=== PATIENT | female | born 2000 ===

== ENCOUNTER 2020-06-14 13:50 | Observation (INO) | payer OTHER, MEDICAID, SELFPAY ==
[2020-06-14] VITALS (18 sets, daily range): BP systolic 105–151; BP diastolic 50–92; PULSE 54–113; RESP 14–20; TEMP 36.4–37.1; O2SAT 98–100; BMI 25.4
--- NOTE | 2020-06-14 | PATH_ITS ---
[facility] Accession Number: [id number] . 01 Material submitted: . appendix - APPENDIX . 01 Clinical history: . ABDOMINAL PAIN, OVARIAN CYST . 02 Diagnosis: Appendix, Appendectomy: Acute suppurative appendicitis with perforation and serositis. Negative for dysplasia and malignancy. MRV 06/17/2020 1425 Local . 02 Electronically signed: . Daina Chapa MD, Pathologist NPI- [id number] . 01 Gross description: . The specimen is received in formalin, labeled appendix and consists of an 8.0 cm in length x 1.0 cm in diameter vermiform appendix with attached hoffman-yellow lobulated mesoappendix measuring 5.0 x 1.0 x 1.0 cm in aggregate. The serosa is hoffman-pink and smooth with fibrinous adhesions and adherent hoffman purulent exudate near the tip. Sectioning reveals a hoffman mucosa and a lumen measuring 0.5 cm in diameter. There is jain-brown liquid fecal material within the tip. There is a perforation site within the tip. Injection Operator sections are submitted, to include the en face margin (blue), central cross-sections and bisected tip in cassettes A1-A2. ([id number]) /[facility] 06/16/2020 1726 Local . 02 Pathologist provided ICD-10: K35.20 . 02 CPT . 805451 Performed at: 01 [facility] [address], [place], [place] [id number] MD Marino Sánchez MD Phone: [phone] Performed at: 02 [facility] [address] [place], [place] [id number] MD Daina Chapa MD Phone: [phone]
--- NOTE | 2020-06-14 14:17 | DI.US.S_ITS ---
PROCEDURE: US ABDOMEN LIMITED INDICATIONS: RLQ PAIN TECHNIQUE: Real-time focused scanning was performed of the abdomen with attention to the appendix, with image documentation. COMPARISON: None. FINDINGS: Appendix visualization: Yes Appendix measurements: 1.1 cm at the origin. Wall thickness measures approximately 2.8 mm. Associated findings: Echogenic fat: Present Appendiceal compressibility: Absent Appendicoliths: Absent Nearby free fluid: Absent Lymphadenopathy: Absent Tenderness on exam: Present IMPRESSION: Dilated appendix with surrounding echogenic fat is suggesting inflammatory change. Findings most compatible with acute or subacute appendicitis. No free fluid is seen. Dictated by: Tavo Roblero M.D. on 06/14/2020 at 14:21 Approved by: Tavo Roblero M.D. on 06/14/2020 at 14:24
[2020-06-14] MEDS: KETOROLAC 60 MG/2 ML VIAL 30 MG IV (14:19)
[2020-06-14 14:21] LABS: Add Manual Diff / Slide Review NO; Basophils Absolute Auto 0 /uL (0-100); Basophils Percent Auto 0.2 % (0-2); Eosinophils Absolute Auto 100 /uL (0-450); Eosinophils Percent Auto 0.8 % (2-4); Hematocrit 38.3 % (36-46); Hemoglobin 13.3 g/dL (12.0-16.0); Lymphocytes Absolute Auto 2300 /uL (1100-4500); Mean Corpuscular HGB Conc 34.8 % (30-36); Mean Corpuscular Hemoglobin 28.8 PG (26-34); Mean Corpuscular Volume 82.8 fL (80-100); Monocytes Absolute Auto 1300 /uL (0-900); Monocytes Percent Auto 9.2 % (3-14); Neutrophils Absolute Auto 10600 /uL (1500-7000); Neutrophils Percent Auto 73.8 % (50-75); Platelet Count 168 X10^3/uL (150-400); Red Blood Cell Count 4.62 X10^6/uL (4.0-5.2); Red Cell Distribution Width 11.8 % (11.6-14.8); White Blood Cell Count 14.4 X10^3/uL (4.5-11.0)
[2020-06-14 14:27] LABS: Alanine Aminotransferase 43 IU/L (<35); Albumin 4.5 g/dL (3.5-5.0); Albumin Globulin Ratio 1.4 (1.0-2.8); Alkaline Phosphatase 68 U/L (38-126); Aspartate Aminotransferase 27 IU/L (14-36); BUN Creatinine Ratio 14.6 (6-22); Bilirubin Total 1.3 mg/dL (0.2-1.3); Blood Urea Nitrogen 12 mg/dL (7-17); Calcium 9.3 mg/dL (8.4-10.2); Carbon Dioxide 30 mmol/L (22-32); Chloride 102 mmol/L (98-107); Estimated Glomerular Filt Rate > 60.0 mL/min (>60); Globulin 3.3 g/dL (1.7-4.1); Glucose 87 mg/dL (70-100); HEMOLYSIS < 15 (0-50); Lipase 80 U/L (23-300); Sodium 138 mmol/L (137-145); Total Protein 7.8 g/dL (6.3-8.2)
--- NOTE | 2020-06-14 14:44 | ED_ITS ---
HPI - Abdominal Pain <Madison Martin DO - Last Filed: 06/14/20 14:51> General Source: patient Mode of arrival: Ambulatory Limitations: no limitations History of Present Illness HPI narrative: Patient is a 20-year-old female who has a history of ovarian cyst presents with right lower quadrant pain ongoing for the last 2 days. It is nonradiating. The pain has been so severe that she has been walking hunched over and now has back pain. She denies any fever or chills. She has no dysuria or urinary frequency. She has not had any nausea or vomiting. MD complaint: abdominal pain Onset (ago): day(s) (2) Pain Consistency: constant Location: RLQ Quality: stabbing Radiation: none Relieving factors: nothing Exacerbating factors: nothing Related Data Home Medications Medication Instructions Recorded Confirmed ibuprofen 200 mg PO PRN #0 07/23/12 cholecalciferol (vitamin D3) 1,000 unit PO QDAY #0 tab 03/29/16 [Vitamin D3] loratadine [Claritin] 5 mg PO #0 ml 03/29/16 Previous Rx's Medication Instructions Recorded doxycycline monohydrate 100 mg PO SEE INSTRUCTIONS #46 tab 07/07/16 Allergies Allergy/AdvReac Type Severity Reaction Status Date / Time soy [SOY] Allergy Unknown DIARRHEA Verified 06/14/20 14:05 Review of Systems <DO Marizol Dang Last Filed: 06/14/20 14:51> Review of Systems Narrative: GENERAL: Denies chills, fatigue, malaise, fever, sweats, travel HEENT: Denies sinus pain, ear pain, sore throat, difficulty swallowing, neck pain RESPIRATORY: Denies dyspnea, cough, wheezing, hemoptysis, sputum. CARDIOVASCULAR: Denies chest pain, palpitations, orthopnea, edema GASTROINTESTINAL: See HPI : Denies dysuria, frequency, incontinence, hematuria, urinary retention, flank pain. MUSCULOSKELETAL: Denies weakness, joint pain, or bony pain SKIN: No rash, no erythema, no pruritus NEUROLOGIC: Denies weakness, dizziness, headache, numbness, change in speech, confusion PSYCHIATRIC: No concerning psychosocial issues. 12 point review of systems is negative except for those stated above and HPI Patient History <DO Marizol Dang Last Filed: 06/14/20 14:51> Social History Smoking Status: Never smoker Smoking Status: Never smoker alcohol intake frequency: 0-2 drinks per day Substance Use Type: does not use Exam <Madison Martin DO - Last Filed: 06/14/20 14:51> Initial Vital Signs Initial Vital Signs: Vital Signs Temperature 98.1 F 06/14/20 14:02 Pulse Rate 89 06/14/20 14:02 Respiratory Rate 14 06/14/20 14:02 Blood Pressure 135/89 06/14/20 14:02 Pulse Oximetry 100 06/14/20 14:02 GENERAL: Alert young female appears in pain and in no acute distress. HEENT: Head atraumatic,EOMI, pupils reactive, face symmetric, moist mucous membranes CARDIOVASCULAR: Regular rate and rhythm without murmurs, rubs or gallops. RESPIRATORY: Breath sounds equal bilaterally, no wheezes rales or rhonchi. ABDOMEN: Soft, tender right lower quadrant no guarding no rebound EXTREMITIES: Normal range of motion, no clubbing or edema. Neurovascularly intact NEUROLOGICAL: Alert and oriented x4.Normal gait and speech. SKIN: Warm, dry, no laceration, no petechiae, no rashes or lesions. <Jaimee Elena MD - Last Filed: 06/14/20 15:59> Initial Vital Signs Initial Vital Signs: Vital Signs Temperature 98.1 F 06/14/20 14:02 Pulse Rate 89 06/14/20 14:02 Respiratory Rate 14 06/14/20 14:02 Blood Pressure 135/89 06/14/20 14:02 Pulse Oximetry 100 06/14/20 14:02 Course <Madison Martin DO - Last Filed: 06/14/20 14:51> Orders Ordered: ED Orders 06/14/20 14:10 Complete Blood Count AUTO DIFF Stat Comprehensive Metabolic Panel Stat Lipase Stat 06/14/20 14:17 US abdomen limited Stat 06/14/20 15:27 COVID19 Stat Discontinued Medications Piperacillin/Tazobactam/Dextrose (Zosyn) 3.375 gm in 50 mls @ 100 mls/hr IV NOW ONE Stop: 06/14/20 15:48 Last Admin: 06/14/20 15:23 Dose: 100 mls/hr Documented by: RMARTIN Ketorolac Tromethamine (Ketorolac 60 Mg/2 Ml Vial) 30 mg IV NOW ONE Stop: 06/14/20 14:18 Last Admin: 06/14/20 14:19 Dose: 30 mg Documented by: STEFFANIE Vital Signs Vital signs: Vital Signs - 8 hr 06/14/20 14:02 06/14/20 14:51 06/14/20 14:55 Temperature 98.1 F Pulse Rate 89 88 82 Respiratory Rate 14 Blood Pressure 135/89 115/63 Pulse Oximetry 100 100 100 06/14/20 15:00 Temperature Pulse Rate 100 H Respiratory Rate Blood Pressure 122/62 Pulse Oximetry 100 <Jaimee Elena MD - Last Filed: 06/14/20 15:59> Orders Ordered: ED Orders 06/14/20 14:10 Complete Blood Count AUTO DIFF Stat Comprehensive Metabolic Panel Stat Lipase Stat 06/14/20 14:17 US abdomen limited Stat 06/14/20 15:27 COVID19 Stat Discontinued Medications Piperacillin/Tazobactam/Dextrose (Zosyn) 3.375 gm in 50 mls @ 100 mls/hr IV NOW ONE Stop: 06/14/20 15:48 Last Admin: 06/14/20 15:23 Dose: 100 mls/hr Documented by: STEFFANIE Ketorolac Tromethamine (Ketorolac 60 Mg/2 Ml Vial) 30 mg IV NOW ONE Stop: 06/14/20 14:18 Last Admin: 06/14/20 14:19 Dose: 30 mg Documented by: STEFFANIE Vital Signs Vital signs: Vital Signs - 8 hr 06/14/20 14:02 06/14/20 14:51 06/14/20 14:55 Temperature 98.1 F Pulse Rate 89 88 82 Respiratory Rate 14 Blood Pressure 135/89 115/63 Pulse Oximetry 100 100 100 06/14/20 15:00 Temperature Pulse Rate 100 H Respiratory Rate Blood Pressure 122/62 Pulse Oximetry 100 MDM - Abdominal Pain <Madison Martin DO - Last Filed: 06/14/20 14:51> Lab Data Result diagrams: 06/14/20 14:10 06/14/20 14:10 Labs: Lab Results 06/14/20 06/14/20 06/14/20 Range/Units 14:10 14:10 15:27 WBC 14.4 H (4.5-11.0) X10^3/uL RBC 4.62 (4.0-5.2) X10^6/uL Hgb 13.3 (12.0-16.0) g/dL Hct 38.3 (36-46) % MCV 82.8 (80-100) fL MCH 28.8 (26-34) PG MCHC 34.8 (30-36) % RDW 11.8 (11.6-14.8) % Plt Count 168 (150-400) X10^3/uL Neut % (Auto) 73.8 (50-75) % Lymph % (Auto) 16.0 L (25-40) % [place] % (Auto) 9.2 (3-14) % Eos % (Auto) 0.8 L (2-4) % Baso % (Auto) 0.2 (0-2) % Neut # (Auto) 69253 H (8697-0490) /uL Lymph # (Auto) 2300 (0036-7295) /uL [place] # (Auto) 1300 H (0-900) /uL Eos # (Auto) 100 (0-450) /uL Baso # (Auto) 0 (0-100) /uL Sodium 138 (137-145) mmol/L Potassium 4.0 (3.4-5.1) mmol/L Chloride 102 (98-107) mmol/L Carbon Dioxide 30 (22-32) mmol/L BUN 12 (7-17) mg/dL Creatinine 0.82 (0.52-1.04) mg/dL Estimated GFR > 60.0 (>60) mL/min BUN/Creatinine Ratio 14.6 (6-22) Glucose 87 (70-100) mg/dL Calcium 9.3 (8.4-10.2) mg/dL Total Bilirubin 1.3 (0.2-1.3) mg/dL AST 27 (14-36) IU/L ALT 43 H (<35) IU/L Alkaline Phosphatase 68 (38-126) U/L Total Protein 7.8 (6.3-8.2) g/dL Albumin 4.5 (3.5-5.0) g/dL Globulin 3.3 (1.7-4.1) g/dL Albumin/Globulin Ratio 1.4 (1.0-2.8) Lipase 80 (23-300) U/L COVID-19 PCR Negative (Negative) Point of care testing: Point of Care Testing Test Results Negative Urine Dip Bedside Urine Glucose Negative Bedside Urine Bilirubin - Negative Bedside Urine Ketone - Negative Urine Specific [place] 1.020 Bedside Urine Occult Blood - Negative Bedside Urine pH 6.0 Bedside Urine Protein +/- 15 Bedside Urine Urobilinogen - Negative Bedside Urine Nitrite - Negative Bedside Urine Leukocytes - Negative Esterase <Jaimee Elena MD - Last Filed: 06/14/20 15:59> Lab Data Labs: Lab Results 06/14/20 06/14/20 06/14/20 Range/Units 14:10 14:10 15:27 WBC 14.4 H (4.5-11.0) X10^3/uL RBC 4.62 (4.0-5.2) X10^6/uL Hgb 13.3 (12.0-16.0) g/dL Hct 38.3 (36-46) % MCV 82.8 (80-100) fL MCH 28.8 (26-34) PG MCHC 34.8 (30-36) % RDW 11.8 (11.6-14.8) % Plt Count 168 (150-400) X10^3/uL Neut % (Auto) 73.8 (50-75) % Lymph % (Auto) 16.0 L (25-40) % [place] % (Auto) 9.2 (3-14) % Eos % (Auto) 0.8 L (2-4) % Baso % (Auto) 0.2 (0-2) % Neut # (Auto) 81955 H (2414-6805) /uL Lymph # (Auto) 2300 (8904-4821) /uL [place] # (Auto) 1300 H (0-900) /uL Eos # (Auto) 100 (0-450) /uL Baso # (Auto) 0 (0-100) /uL Sodium 138 (137-145) mmol/L Potassium 4.0 (3.4-5.1) mmol/L Chloride 102 (98-107) mmol/L Carbon Dioxide 30 (22-32) mmol/L BUN 12 (7-17) mg/dL Creatinine 0.82 (0.52-1.04) mg/dL Estimated GFR > 60.0 (>60) mL/min BUN/Creatinine Ratio 14.6 (6-22) Glucose 87 (70-100) mg/dL Calcium 9.3 (8.4-10.2) mg/dL Total Bilirubin 1.3 (0.2-1.3) mg/dL AST 27 (14-36) IU/L ALT 43 H (<35) IU/L Alkaline Phosphatase 68 (38-126) U/L Total Protein 7.8 (6.3-8.2) g/dL Albumin 4.5 (3.5-5.0) g/dL Globulin 3.3 (1.7-4.1) g/dL Albumin/Globulin Ratio 1.4 (1.0-2.8) Lipase 80 (23-300) U/L COVID-19 PCR Negative (Negative) Point of care testing: Point of Care Testing Test Results Negative Urine Dip Bedside Urine Glucose Negative Bedside Urine Bilirubin - Negative Bedside Urine Ketone - Negative Urine Specific [place] 1.020 Bedside Urine Occult Blood - Negative Bedside Urine pH 6.0 Bedside Urine Protein +/- 15 Bedside Urine Urobilinogen - Negative Bedside Urine Nitrite - Negative Bedside Urine Leukocytes - Negative Esterase Discharge Plan Departure Patient Disposition: Admitted As Inpatient Clinical Impression: Acute appendicitis
[2020-06-14] MEDS: PIPERACILLIN-TAZO 3.375 GM/50 ML FROZ.PIGGY IV (15:23)
[2020-06-14 15:43] LABS: COVID19 -Nasal RAPID Negative (Negative)
--- NOTE | 2020-06-14 16:01 | ED_ITS ---
HPI - Abdominal Pain General Chief Complaint: Abdominal Pain Stated Complaint: abdominal pain, ovarian cyst Time Seen by Provider: 06/14/20 13:58 Source: patient Mode of arrival: Ambulatory Limitations: no limitations History of Present Illness HPI narrative: Patient is a 20-year-old female with history of ovarian cyst who presents with right lower quadrant pain ongoing for the last 2 days. His seems to have progressively gotten worse. She describes it as stabbing. She actually has been walking hunched over and now has back pain. She denies any radiating pain. As she denies any is dysuria or urinary frequency. She has not had any fever or chills. She last ate at about 1:[address] to the emergency department she had salmon chowder. But she overall has had decreased in appetite. She says the travel over here in car read made pain significantly worse. MD complaint: abdominal pain Onset (ago): day(s) (2) Location: RLQ Severity: moderate Quality: stabbing Radiation: none Migration to: no migration Relieving factors: nothing Exacerbating factors: nothing Related Data Home Medications Medication Instructions Recorded Confirmed ibuprofen 200 mg PO PRN #0 07/23/12 cholecalciferol (vitamin D3) 1,000 unit PO QDAY #0 tab 03/29/16 [Vitamin D3] loratadine [Claritin] 5 mg PO #0 ml 03/29/16 Previous Rx's Medication Instructions Recorded doxycycline monohydrate 100 mg PO SEE INSTRUCTIONS #46 tab 07/07/16 Allergies Allergy/AdvReac Type Severity Reaction Status Date / Time soy [SOY] Allergy Unknown DIARRHEA Verified 06/14/20 14:05 Review of Systems Review of Systems Narrative: GENERAL: Denies chills, fatigue, malaise, fever, sweats, travel HEENT: Denies sinus pain, ear pain, sore throat, difficulty swallowing, neck pain RESPIRATORY: Denies dyspnea, cough, wheezing, hemoptysis, sputum. CARDIOVASCULAR: Denies chest pain, palpitations, orthopnea, edema GASTROINTESTINAL: See HPI : Denies dysuria, frequency, incontinence, hematuria, urinary retention, flank pain. MUSCULOSKELETAL: Denies weakness, joint pain, or bony pain SKIN: No rash, no erythema, no pruritus NEUROLOGIC: Denies weakness, dizziness, headache, numbness, change in speech, confusion PSYCHIATRIC: No concerning psychosocial issues. 12 point review of systems is negative except for those stated above and HPI Patient History Medical History Cyst, ovarian Migraine Social History Smoking Status: Never smoker Smoking Status: Never smoker alcohol intake frequency: 0-2 drinks per day Substance Use Type: does not use Exam Initial Vital Signs Initial Vital Signs: Vital Signs Temperature 98.1 F 06/14/20 14:02 Pulse Rate 89 06/14/20 14:02 Respiratory Rate 14 06/14/20 14:02 Blood Pressure 135/89 06/14/20 14:02 Pulse Oximetry 100 06/14/20 14:02 GENERAL: Well-appearing, well-nourished and in no acute distress. HEENT: Head atraumatic,EOMI, pupils reactive, face symmetric, moist mucous membranes CARDIOVASCULAR: Regular rate and rhythm without murmurs, rubs or gallops. RESPIRATORY: Breath sounds equal bilaterally, no wheezes rales or rhonchi. ABDOMEN: Soft, tender right lower quadrant no guarding or rebound. Negative Dobbins sign : No CVA tenderness EXTREMITIES: Normal range of motion, no clubbing or edema. Neurovascularly intact NEUROLOGICAL: Alert and oriented x4.Normal gait and speech. SKIN: Warm, dry, no laceration, no petechiae, no rashes or lesions. Course Orders Ordered: ED Orders 06/14/20 14:10 Complete Blood Count AUTO DIFF Stat Comprehensive Metabolic Panel Stat Lipase Stat 06/14/20 14:17 US abdomen limited Stat 06/14/20 15:27 COVID19 Stat Discontinued Medications Piperacillin/Tazobactam/Dextrose (Zosyn) 3.375 gm in 50 mls @ 100 mls/hr IV NOW ONE Stop: 06/14/20 15:48 Last Admin: 06/14/20 15:23 Dose: 100 mls/hr Documented by: STEFFANIE Ketorolac Tromethamine (Ketorolac 60 Mg/2 Ml Vial) 30 mg IV NOW ONE Stop: 06/14/20 14:18 Last Admin: 06/14/20 14:19 Dose: 30 mg Documented by: STEFFANIE Vital Signs Vital signs: Vital Signs - 8 hr 06/14/20 14:02 06/14/20 14:51 06/14/20 14:55 Temperature 98.1 F Pulse Rate 89 88 82 Respiratory Rate 14 Blood Pressure 135/89 115/63 Pulse Oximetry 100 100 100 06/14/20 15:00 Temperature Pulse Rate 100 H Respiratory Rate Blood Pressure 122/62 Pulse Oximetry 100 MDM - Abdominal Pain Lab Data Attestation: I reviewed the patient's lab results. Result diagrams: 06/14/20 14:10 06/14/20 14:10 Labs: Lab Results 06/14/20 06/14/20 06/14/20 Range/Units 14:10 14:10 15:27 WBC 14.4 H (4.5-11.0) X10^3/uL RBC 4.62 (4.0-5.2) X10^6/uL Hgb 13.3 (12.0-16.0) g/dL Hct 38.3 (36-46) % MCV 82.8 (80-100) fL MCH 28.8 (26-34) PG MCHC 34.8 (30-36) % RDW 11.8 (11.6-14.8) % Plt Count 168 (150-400) X10^3/uL Neut % (Auto) 73.8 (50-75) % Lymph % (Auto) 16.0 L (25-40) % [place] % (Auto) 9.2 (3-14) % Eos % (Auto) 0.8 L (2-4) % Baso % (Auto) 0.2 (0-2) % Neut # (Auto) 20072 H (2145-2607) /uL Lymph # (Auto) 2300 (7750-5944) /uL [place] # (Auto) 1300 H (0-900) /uL Eos # (Auto) 100 (0-450) /uL Baso # (Auto) 0 (0-100) /uL Sodium 138 (137-145) mmol/L Potassium 4.0 (3.4-5.1) mmol/L Chloride 102 (98-107) mmol/L Carbon Dioxide 30 (22-32) mmol/L BUN 12 (7-17) mg/dL Creatinine 0.82 (0.52-1.04) mg/dL Estimated GFR > 60.0 (>60) mL/min BUN/Creatinine Ratio 14.6 (6-22) Glucose 87 (70-100) mg/dL Calcium 9.3 (8.4-10.2) mg/dL Total Bilirubin 1.3 (0.2-1.3) mg/dL AST 27 (14-36) IU/L ALT 43 H (<35) IU/L Alkaline Phosphatase 68 (38-126) U/L Total Protein 7.8 (6.3-8.2) g/dL Albumin 4.5 (3.5-5.0) g/dL Globulin 3.3 (1.7-4.1) g/dL Albumin/Globulin Ratio 1.4 (1.0-2.8) Lipase 80 (23-300) U/L COVID-19 PCR Negative (Negative) Point of care testing: Point of Care Testing Test Results Negative Urine Dip Bedside Urine Glucose Negative Bedside Urine Bilirubin - Negative Bedside Urine Ketone - Negative Urine Specific [place] 1.020 Bedside Urine Occult Blood - Negative Bedside Urine pH 6.0 Bedside Urine Protein +/- 15 Bedside Urine Urobilinogen - Negative Bedside Urine Nitrite - Negative Bedside Urine Leukocytes - Negative Esterase Imaging Data US - abdomen: Radiologist's Impression: PROCEDURE: US ABDOMEN LIMITED INDICATIONS: RLQ PAIN TECHNIQUE: Real-time focused scanning was performed of the abdomen with attention to the appendix, with image documentation. COMPARISON: None. FINDINGS: Appendix visualization: Yes Appendix measurements: 1.1 cm at the origin. Wall thickness measures approximately 2.8 mm. Associated findings: Echogenic fat: Present Appendiceal compressibility: Absent Appendicoliths: Absent Nearby free fluid: Absent Lymphadenopathy: Absent Tenderness on exam: Present IMPRESSION: Dilated appendix with surrounding echogenic fat is suggesting inflammatory change. Findings most compatible with acute or subacute appendicitis. No free fluid is seen. Dictated by: Tavo Roblero M.D. on 06/14/2020 at 14:21 MDM Narrative Medical decision making narrative: Patient is given Toradol seems to help her pain significantly. She is found have leukocytosis. Ultrasound does confirm appendicitis. [address] Long has been updated on patient's symptoms test results and diagnosis and concern for appendicitis. She is in ED to see and evaluate patient. Request zosyn. Patient is going to the OR Discharge Plan Departure Patient Disposition: Admitted As Inpatient Clinical Impression: Acute appendicitis Qualifiers: Acute appendicitis type: with localized peritonitis Appendicitis gangrene presence: without gangrene Appendicitis perforation presence: without perforation Appendicitis abscess presence: without abscess Qualified Code(s): K35.30 - Acute appendicitis with localized peritonitis, without perforation or gangrene Admit Date/Time: 06/14/20 15:55 Admit Provider: Jaimee Elena
--- NOTE | 2020-06-14 16:01 | PM.HP.1 ---
History of Present Illness History of Present Illness Date Patient Seen: 06/14/20 Time Patient Seen: 16:01 Chief complaint: abdominal pain, ovarian cyst Narrative: This is a 20 yo woman with 3 days of RLQ pain. She has a history of ovarian cysts and assumed she was having similar, but her pain has not resolved and she came into the ER for evaluation. She has been taking ibuprofen and using a heating pad on her abdomen. She has a small blister on her skin from the heating pad. On RLQ US, she was found to have a thickened dilated appendix consistent with acute appendicitis. She has a WBC of 14. She denies subjective fevers, nausea, vomiting, diarrhea, constipation. [place] PMH: denies other PMH PSH: wisdom teeth removed FMH: unknown, patient is adopted SOC: lives with guardian; denies TOB, occasional EtOH, denies other substance use/marijuana/etc Meds: takes vitamins and Ashwagandha supplement Allergies: soy, causes stomach upset ROS: Denies dysuria, chest pain, shortness of breath, weakness, lower extremity swelling. Denies COVID symptoms or COVID exposures. Thirteen system review is otherwise negative other than as mentioned below and in HPI. PE: GENERAL: Well groomed and cooperative. Appears stated age. Answers questions promptly and appropriately. Vital signs noted. HENT: Normocephalic, atraumatic. Hearing intact. EYES: Conjunctiva pink, sclera white, no periorbital swelling. CARDIOVASCULAR: Regular rate. No pedal edema. RESPIRATORY: Non-tachypneic, breathing comfortably on room air. GASTROINTESTINAL: Abdomen soft and non-distended; positive Rovsing sign, focal tenderness to palpation in the right lower quadrant, pain on palpation of the right flank, 1 cm x 2 cm bulla on the skin in the right lower/mid abdomen pt says is from heating pad GENITALURINARY: No flank tenderness. MUSCULOSKELETAL: Equal tone and mass bilaterally. SKIN: Warm, dry, soft, appropriate color for ethnicity. No other lesions, rashes, or wounds. NEURO: Alert and Oriented X 3. No gross sensory deficits, or cognitive issues. PSYCH: Appropriate affect and mood. Patient History Medical History (Updated 06/14/20 @ 16:09 by Madison Botnick, DO) Cyst, ovarian Migraine Family & Social History Safety & Behavioral: Feels Safe in Current Yes Environment Been Physically Hurt or No Threatened By a Person Tobacco & Substance use: Smoking Status Never smoker alcohol intake frequency 0-2 drinks per day Substance Use Type does not use Meds Home Medications and Allergies Home Medications Medication Instructions Recorded Confirmed Type ibuprofen 200 mg PO PRN #0 07/23/12 History cholecalciferol (vitamin D3) 1,000 unit PO QDAY #0 tab 03/29/16 History [Vitamin D3] loratadine [Claritin] 5 mg PO #0 ml 03/29/16 History doxycycline monohydrate 100 mg PO SEE INSTRUCTIONS #46 tab 07/07/16 Rx Allergies Allergy/AdvReac Type Severity Reaction Status Date / Time soy [SOY] Allergy Unknown DIARRHEA Verified 06/14/20 14:05 Exam Vital Signs (past 8 hours): - 06/14/20 14:02 06/14/20 14:51 06/14/20 14:55 Temperature 98.1 F Pulse Rate 89 88 82 Respiratory Rate 14 Blood Pressure 135/89 115/63 Pulse Oximetry 100 100 100 06/14/20 15:00 Temperature Pulse Rate 100 H Respiratory Rate Blood Pressure 122/62 Pulse Oximetry 100 Oxygen Delivery Method Room Air Objective Imaging US - abdomen: My impression: Looks like early acute appendicitis Radiologist's impression: [address] [id number] ReportSigned Patient: Chelsi Anthony#: [id number]: 2000Acct:[id number]/Sex: 20 / FDate of Service: 06/14/20Loc: EDAccession Number: [id number] Procedure: US abdomen limited Ordering Provider: Madison Martin D.O. PROCEDURE: US ABDOMEN LIMITED INDICATIONS: RLQ PAIN TECHNIQUE: Real-time focused scanning was performed of the abdomen with attention to the appendix, with image documentation. COMPARISON: None. FINDINGS: Appendix visualization: Yes Appendix measurements: 1.1 cm at the origin. Wall thickness measures approximately 2.8 mm. Associated findings: Echogenic fat: Present Appendiceal compressibility: Absent Appendicoliths: Absent Nearby free fluid: Absent Lymphadenopathy: Absent Tenderness on exam: Present IMPRESSION: Dilated appendix with surrounding echogenic fat is suggesting inflammatory change. Findings most compatible with acute or subacute appendicitis. No free fluid is seen. Dictated by: Tavo Roblero M.D. on 06/14/2020 at 14:21 Approved by: Tavo Roblero M.D. on 06/14/2020 at 14:24 Labs Result Diagrams: 06/14/20 14:10 06/14/20 14:10 Labs: Laboratory Results - last 24 hr 06/14/20 06/14/20 06/14/20 14:10 14:10 15:27 WBC 14.4 H RBC 4.62 Hgb 13.3 Hct 38.3 MCV 82.8 MCH 28.8 MCHC 34.8 RDW 11.8 Plt Count 168 Neut % (Auto) 73.8 Lymph % (Auto) 16.0 L Bates % (Auto) 9.2 Eos % (Auto) 0.8 L Baso % (Auto) 0.2 Neut # (Auto) 16190 H Lymph # (Auto) 2300 Bates # (Auto) 1300 H Eos # (Auto) 100 Baso # (Auto) 0 Sodium 138 Potassium 4.0 Chloride 102 Carbon Dioxide 30 BUN 12 Creatinine 0.82 Estimated GFR > 60.0 BUN/Creatinine Ratio 14.6 Glucose 87 Calcium 9.3 Total Bilirubin 1.3 AST 27 ALT 43 H Alkaline Phosphatase 68 Total Protein 7.8 Albumin 4.5 Globulin 3.3 Albumin/Globulin Ratio 1.4 Lipase 80 COVID-19 PCR Negative Assessment & Plan Assessment and plan (1) Acute appendicitis: Qualifiers: Acute appendicitis type: with localized peritonitis Appendicitis abscess presence: without abscess Appendicitis gangrene presence: without gangrene Appendicitis perforation presence: without perforation Qualified Code(s): K35.30 - Acute appendicitis with localized peritonitis, without perforation or gangrene Status: Acute Assessment & Plan narrative: This is a 20-year-old young woman with history, exam, labs, and imaging consistent with early acute appendicitis. I have discussed with the patient and her guardian, at length, the risks and benefits of laparoscopic possible open appendectomy. We discussed the risk of bleeding, infection, damage to nearby structures, need for additional procedures, need for open surgery, risk of ongoing infection, perforation, bowel obstruction, need for drain placement, need for prolonged hospitalization, risks of anesthesia. I spoke to her about the possibility that the findings in the operating room or different than what was suspected based on the ultrasound. I told her that depending on the findings the operating we may have to alter the procedure based on what we find. The patient desires to proceed with surgery. Plan: NPO, IV fluids, IV Zosyn Laparoscopic possible open appendectomy Possible NG or OG tube placement in the operating room COVID-19 COVID-19 status: Negative Result date/Date tested (Pos, Neg/Pending): 06/14/20 Time Spent With Patient Time with patient: 25 - 35 minutes Quality VTE Deep Vein Thrombosis/Pulmonary Embolism Present on Admission: No
[2020-06-14] MEDS: LACTATED RINGERS 1,000 ML 42 ML IV (16:15)
[2020-06-14] MEDS: BUPIVACAINE 0.25% (PF) VIAL 30 ML INJ (17:19)
[2020-06-14] MEDS: EPINEPHrine 1 MG/ML 0.15 MG SUBCUT (17:21)
--- NOTE | 2020-06-14 18:03 | P.OP_ITS ---
Operative Date/Time/Diagnoses Date of procedure: 06/14/20 Time of procedure: 18:04 Pre-op diagnosis: Acute appendicitis Post-op diagnosis: same Procedure & Clinicians Procedure: Laparoscopic appendectomy Same procedure as scheduled: Yes Indications: Acute appendicitis Surgeon: Jaimee Elena Click Yes if Unassisted: Yes Anesthesia Type: General Operative Notes Findings: Thickened inflamed mid and distal appendix, no signs of abscess or taina perforation Specimen(s): other (Appendix) Estimated Blood Loss (mL): 1 Procedure in detail: The patient was brought into the operating room and placed supine on the OR table. Sequential compression devices were placed on both legs and turned on. Appropriate perioperative antibiotics were given prior to the start of surgery. General anesthesia was induced the patient was intubated. Maddox catheter was placed sterilely in the bladder. The abdomen was prepped and draped in sterile fashion. Surgical time-out was conducted. Local anesthetic was injected under the skin just superior to the umbilicus and a 5 mm vertical incision was made at this site. The umbilical stalk was grasped with a Alfonso and elevated. A Veress needle was passed through the fascia into proper position. The position was tested with a saline drop test which was appropriate for intra-abdominal Veress needle placement. The abdomen was then insufflated in the usual fashion. Once insufflated to 15 mm Hg the Veress needle was removed and a 5 mm optical trocar was placed under direct vision using a 5 mm 30 degree scope. Once the camera was inside the abdomen I took a look around. There was no injury from port placement. Two additional ports were placed in a similar fashion in the suprapubic position and left lower quadrant. The umbilical port was upsized to a 12 mm port. In the right lower quadrant there were adhesions of the omentum up to the abdominal wall. These were gently taken down with blunt dissection, and they came down relatively easily. Once they were down, the inflamed appendix came into view. The patient was placed in Trendelenburg position with right side up. The appendix was adherent to the cecum and terminal ileum with inflammatory adhesions. The appendix was grasped and gently peeled off of the surrounding structures. I grasped the mid body of the appendix and elevated it, until I could see its base entering the cecum. I dissected out the base of the appendix, and divided the mesoappendix using LigaSure. There was good hemo stasis on the appendiceal artery and the entire mesoappendix. Once the base of the appendix was entirely dissected out, I could see that the mid body and tip of the appendix were extremely thickened and inflamed, but the base of the appendix was relatively normal appearing. I placed 2 PDS endo-loops at the base of the appendix and secured them snugly. I then divided the appendix off of the cecum with the LigaSure, leaving the endo-loops in place securely on base of the cecum. The appendix was placed in an Endo-Catch bag and removed through the umbilical port site. I went back and took another look at the surgical site. There was a significant amount of inflamed omentum, but no active bleeding. LigaSure was used to ensure hemostasis of the omentum. I then took a look at the base of the appendix, and the endo-loops were secure and in good position, with no bleeding or leakage. We then positioned the patient back completely supine, and brought the omentum back down to cover the bowel. I then used the laparoscopic suture passer and closed the umbilical port site with 0 Vicryl suture through the fascia. At this point the insufflation was removed from the abdomen and the port sites were closed with, 3-O Vicryl in the subcutaneous layers, and 4 Monocryl in the skin. Each port site was sealed with Dermabond. Local anesthetic was given at each of the port sites and in the fa scia. This concluded the procedure. At this point the needle sponge and instrument counts were correct. The appendix was passed off the table for pathology. The patient was awakened from anesthesia and extubated. The patient was transferred to the postanesthesia care unit in stable condition. Complications: none Post-operative Condition: stable Disposition: PACU
[2020-06-14] MEDS: LACTATED RINGERS 1,000 ML 100 ML IV (18:40)
[2020-06-14] MEDS: PHENAZOPYRIDINE 100 MG TABLET PO (19:12)
--- NOTE | 2020-06-14 19:57 | PC.NURSE ---
Addendum entered by Kerry Whalen R.N. 06/14/20 21:57: Pt reports discomfort right posterior shoulder. Provided with warm blanket and tylenol. Pt reports this was effective, but discomfort beginning to build again. Offered pt narcotic and pt declines. Prefers to continue with warm blankets. Positions self independently in bed. Encouraged to call for needs/wants. Original Note: 1825 Pt to room 218 from PACU awake, alert and appropriate. Denies surgical pain. Ice to abdomen over gown. Three lap sites with dermabond wound adhesive intact. Bowel tones hypoative, but abdomen is soft and pt denies nausea. Is eager to eat and has multiple requests for foods. Pt was begun on clear liquids and tolerated these well. Advanced to full liquids and tolerated these well. Now wants solid foods; tuna sandwich provided. C/o urinary discomfort with attempt to void. IV fluids instituted and oral fluids provided. Pyridium given. Pt uses call light to request staff assist with toileting. Denies pain with this void. BL calf scd's replaced when in bed. Pt prefers to wear masks x 2 over nose and mouth at all times. Verballly admits to being anxious about covid infection. Staff reassure every precaution is in place to protect staff and pt.
[2020-06-14] MEDS: ACETAMINOPHEN 325 MG TABLET 650 MG PO (20:23)
[2020-06-14] MEDS: polyethylene glycoL 3350 17 GM POWD.PACK PO (20:23)
[2020-06-15 03:55] VITALS: BP 117/71; PULSE 60; RESP 15; TEMP 36.6; O2SAT 99
[2020-06-15] MEDS: polyethylene glycoL 3350 17 GM POWD.PACK PO (07:36)
[2020-06-15] MEDS: INFLUENZA VACCINE 0.5 ML SYRINGE IM (07:36)
[2020-06-15 08:45] VITALS: PULSE 60; RESP 16; O2SAT 99
--- NOTE | 2020-06-15 09:18 | PC.NURSE ---
Day shift: Paperwork signed and all questions answered. The 3 lap sites show no s/s of infection. Pt has denied any pain or nausea. Independent in room. Left AC unit with Lázaro at approx 0920. Pt has all personal belongings. MEd srpt sent electronic to Pt's pharmacy by . Pt encouraged to drink plenty of fluids. Read MD instructions to Pt out loud and answered all questions. Pt taken to car in . Going back home to [place]. Has boarding pass.
== END 2020-06-15 09:22 | disposition home or self-care (01) ==
LOC: ED 13:58 → AC 15:59
PROVIDERS: Admitting Provider Surgery; Emergency Provider Emergency Medicine; Family Provider Nurse Practitioner; PCP Family Medicine; Referring Provider Emergency Medicine; Visit Provider Surgery
PROC: 0DTJ4ZZ Resection of Appendix, Percutaneous Endoscopic Approach (ICD-10-PCS; CPT 44970; principal; 2020-06-14 16:30)
DX: K35.80 Unspecified acute appendicitis (principal); R10.31 Right lower quadrant pain; Z01.812 Encounter for preprocedural laboratory examination; Z20.828 Contact with and (suspected) exposure to other viral communicable diseases
CPT/HCPCS: 44970; 36415; 76705; 80053; 81003; 81025; 83690; 85025; 87635; 90471; 90656; 94762; 96365; 96372; 96375; 99219; 99283; 99284; G0378; J0171; J0330; J1100; J1885; J2250; J2405; J2543; J2704; J2765; J3010; Q2038